=== PATIENT | female | born 2000 | race Caucasian/White ===

== ENCOUNTER 2022-02-17 09:28 | Emergency (ER) | payer OTHER, SELFPAY ==
[~2022-02-17] VITALS: Ht 165.1 cm; Wt 63.6 kg
[2022-02-17 09:30] VITALS: BP 96/54
== END 2022-02-17 11:11 | disposition home or self-care (01) ==
LOC: M ED 09:28
DX: S83.91XA Sprain of unspecified site of right knee, initial encounter (principal); Z88.0 Allergy status to penicillin; Y99.1 Military activity; Y93.B9 Activity, other involving muscle strengthening exercises; Y92.9 Unspecified place or not applicable